=== PATIENT | female | born 1995 | race Caucasian/White ===

== ENCOUNTER 2016-10-03 13:23 | Emergency (ER) | payer BC ==
[~2016-10-03] VITALS: Ht 162.6 cm; Wt 59.0 kg
[2016-10-03 13:27] VITALS: Ht 162.6 cm; Wt 59.0 kg
[2016-10-03] MEDS ORDERED: SODIUM CHLORIDE 0.9% 1000ML 1,000 ML IV STA (14:32)
[2016-10-03] MEDS ORDERED: ACETAMINOPHEN 325 MG TAB PO STA (14:32)
[2016-10-03 15:01] LABS: BASO % 0.1 %; BASO ABS # 0.01 K/uL (0-0.2); COMPLETE YES; EOS % 0.1 %; HEMATOCRIT 38.9 % (37-47); IG% 0.2 %; LYMPH % 9.5 %; MEAN CELL VOLUME 89.6 fL (80-100); MEAN CORPUSCULAR HEMOGLOBIN 30.9 pg (25-34); MEAN CORPUSCULAR HGB CONC 34.4 g/dl (32-36); MEAN PLATELET VOLUME 10.1 fL (7.4-10.4); MONO % 8.9 %; NEUT % 81.2 %; PLATELET COUNT 157 K/uL (130-400); RED BLOOD COUNT 4.34 M/uL (4.2-5.4); WHITE BLOOD COUNT 9.47 K/uL (4.8-10.8)
[2016-10-03 15:16] LABS: BUN/CREATININE RATIO 9.5 (10-20); CALCIUM 9.1 mg/dl (8.5-10.1); POTASSIUM 3.7 mmol/L (3.5-5.1)
[2016-10-03 15:30] LABS: MANUAL MICROSCOPIC REQUIRED? YES; URINE APPEARANCE CLEAR (CLEAR); URINE COLOR YELLOW; URINE NITRITE NEG (NEG); URINE SPECIFIC GRAVITY 1.025 (1.000-1.030); UROBILINOGEN NEG (NEG)
[2016-10-03 15:58] LABS: REVIEW REQ? NO
[2016-10-03 15:59] LABS: URINE BILIRUBIN NEG (NEG)
[2016-10-03 16:08] LABS: URINE BACTERIA NEG (NEG); URINE RBC 0-4 /hpf (0-4)
[2016-10-03] MEDS ORDERED: IBUPROFEN 200 MG TAB PO STA (16:10)
--- NOTE | 2016-10-03 16:36 | DIAGNOSTIC IMAGING REPORT ---
CHEST 2 VIEWS ROUTINE CLINICAL HISTORY: Fever, bodyaches vomiting, cough COMPARISON STUDY: No previous studies for comparison. FINDINGS: The cardiac and mediastinal contours are normal. There is no evidence of focal pulmonary consolidation. There is no evidence of failure. No pleural effusions are visualized.[ IMPRESSION: No active disease in the chest. Electronically signed by: Hussein Key M.D. 10/03/2016 4:34 PM Dictated Date/Time: 10/03/2016 4:34 PM
[2016-10-03 17:36] VITALS: BP 105/58; PULSE 96; TEMP 37.1; O2SAT 96
--- NOTE | 2016-10-03 17:53 | EMERGENCY ROOM VISIT NOTE ---
History Report prepared by Ingrid: Jennifer Gill Under the Supervision of: Dr. Venu Adams M.D. First contact with patient: 14:25 Chief Complaint: FLU LIKE SX Stated Complaint: HIGH FEVER, BODY ACHES, NECK PAIN, VOMITED History of Present Illness The patient is a 21 year old female who presents to the Emergency Room with complaints of constant flu-like symptoms beginning yesterday morning. The patient states that yesterday morning she woke up and vomited. She complains of a consistent fever of 102.7, body aches, slight cough, anterior neck pain, sore throat when she swallows, and some head pressure that was present yesterday and is now resolved. She denies any headache, rash, and chance of . The patient reports that she had mono last year that was confirmed with blood work. She notes that her roommates have coughs but no one around her has been severely ill. She states that she had her flu shot this year and she took Tylenol last 7 hours ago. Source of History: patient Onset: yesterday Position: other (global) Quality: other (flu-like) Timing: constant Associated Symptoms: + cough, + fevers, + neck pain, + sorethroat, No headache, No rash Review of Systems See HPI for pertinent positives & negatives. A total of 10 systems reviewed and were otherwise negative. Past Medical & Surgical Medical Problems: (1) No Known Active Medical Problems Family History No pertinent family history stated. Social History Smoking Status: Never Smoker Housing Status: lives with roommate Occupation Status: [employer] student Current/Historical Medications No Active Prescriptions or Reported Meds Allergies Coded Allergies: No Known Allergies (Unverified , 10/03/16) Physical Exam Vital Signs Date Time Temp Pulse Resp B/P Pulse Ox O2 Delivery O2 Flow Rate FiO2 10/03/16 17:36 37.1 96 16 105/58 96 Room Air 10/03/16 16:32 37.5 72 16 107/58 99 Room Air 10/03/16 14:55 37.3 81 16 116/62 100 Room Air 10/03/16 13:27 36.7 104 16 123/72 96 Room Air Physical Exam Constitutional: Vital signs reviewed. Eyes: Pupils are equal round reactive to light. Conjunctiva are noninjected. ENT: Pharynx is erythematous with no exudate. Mucous membranes are moist. Neck supple without meningeal signs. Tender anterior cervical lymphadenopathy bilaterally. Respiratory: Clear to auscultation bilaterally. Breath sounds are equal bilaterally. Cardiovascular: Regular rate and rhythm. No rubs or gallops. GI: Soft, nondistended and nontender. Bowel sounds are present. No organomegaly. Musculoskeletal: No peripheral edema. No CVA tenderness. Integumentary: No cyanosis. Neurological: The patient is awake and alert. No focal deficits. Psychiatric: Normal affect. Medical Decision & Procedures ER Provider Diagnostic Interpretation: X-ray results as stated below per interpretation by me and the radiologist: CHEST 2 VIEWS ROUTINE FINDINGS: The cardiac and mediastinal contours are normal. There is no evidence of focal pulmonary consolidation. There is no evidence of failure. No pleural effusions are visualized.[ IMPRESSION: No active disease in the chest. Electronically signed by: Hussein Key M.D. 10/03/2016 4:34 PM Dictated Date/Time: 10/03/2016 4:34 PM Laboratory Results 10/03/16 14:50 Red Blood Count 4.34, Mean Corpuscular Volume 89.6, Mean Corpuscular Hemoglobin 30.9, Mean Corpuscular Hemoglobin Concent 34.4, Mean Platelet Volume 10.1, Neutrophils (%) (Auto) 81.2, Lymphocytes (%) (Auto) 9.5, Monocytes (%) (Auto) 8.9, Eosinophils (%) (Auto) 0.1, Basophils (%) (Auto) 0.1, Neutrophils # (Auto) 7.69, Lymphocytes # (Auto) 0.90, Monocytes # (Auto) 0.84, Eosinophils # (Auto) 0.01, Basophils # (Auto) 0.01 10/03/16 14:50 Test 10/03/16 14:50 10/03/16 15:05 White Blood Count 9.47 K/uL (4.8-10.8) Red Blood Count 4.34 M/uL (4.2-5.4) Hemoglobin 13.4 g/dL (12.0-16.0) Hematocrit 38.9 % (37-47) Mean Corpuscular Volume 89.6 fL (80-100) Mean Corpuscular Hemoglobin 30.9 pg (25-34) Mean Corpuscular Hemoglobin Concent 34.4 g/dl (32-36) Platelet Count 157 K/uL (130-400) Mean Platelet Volume 10.1 fL (7.4-10.4) Neutrophils (%) (Auto) 81.2 % Lymphocytes (%) (Auto) 9.5 % Monocytes (%) (Auto) 8.9 % Eosinophils (%) (Auto) 0.1 % Basophils (%) (Auto) 0.1 % Neutrophils # (Auto) 7.69 K/uL (1.4-6.5) Lymphocytes # (Auto) 0.90 K/uL (1.2-3.4) Monocytes # (Auto) 0.84 K/uL (0.11-0.59) Eosinophils # (Auto) 0.01 K/uL (0-0.5) Basophils # (Auto) 0.01 K/uL (0-0.2) RDW Standard Deviation 42.2 fL (36.4-46.3) RDW Coefficient of Variation 12.8 % (11.5-14.5) Immature Granulocyte % (Auto) 0.2 % Immature Granulocyte # (Auto) 0.02 K/uL (0.00-0.02) Anion Gap 8.0 mmol/L (3-11) Est Creatinine Clear Calc Drug Dose 77.5 ml/min Estimated GFR () 93.9 Estimated GFR (Non- 81.0 BUN/Creatinine Ratio 9.5 (10-20) Calcium Level 9.1 mg/dl (8.5-10.1) Influenza Type A Antigen Neg for Influ A (NEG) Influenza Type B Antigen Neg for Influ B (NEG) Urine Color YELLOW Urine Appearance CLEAR (CLEAR) Urine pH 6.0 (4.5-7.5) Urine Specific [place] 1.025 (1.000-1.030) Urine Protein 1+ (NEG) Urine Glucose (UA) NEG (NEG) Urine Ketones 1+ (NEG) Urine Occult Blood NEG (NEG) Urine Nitrite NEG (NEG) Urine Bilirubin NEG (NEG) Urine Urobilinogen NEG (NEG) Urine Leukocyte Esterase NEG (NEG) Urine RBC 0-4 /hpf (0-4) Urine WBC 1-5 /hpf (0-5) Urine Epithelial Cells >30 /lpf (0-5) Urine Renal Cells 5-10 /lpf (FEW) Urine Bacteria NEG (NEG) Urine Test NEG (NEG) Laboratory results as reviewed by ma. Medications Administered Medications (Trade) Dose Ordered Sig/Frank Route Start Time Stop Time Status Last Admin Dose Admin Sodium Chloride (Nss 1000ml) 1,000 ml @ 999 mls/hr Q1H1M STAT IV 10/03/16 14:32 10/03/16 15:32 DC 10/03/16 15:05 999 MLS/HR Acetaminophen (Tylenol Tab) 650 mg NOW STAT PO 10/03/16 14:32 10/03/16 14:35 DC 10/03/16 15:05 650 MG Ibuprofen (Advil Tab) 400 mg NOW STAT PO 10/03/16 16:10 10/03/16 16:11 DC 10/03/16 16:32 400 MG ED Course 1425: The patient was evaluated in room A9. A complete history and physical exam was performed. 1432: Tylenol Tab 650mg PO, Sodium Chloride 1000 ml @ 999 mls/hr IV. 1610: I reevaluated the patient and talked to her about her test results. She is feeling a little better. 1610: Advil Tab 400mg PO. 1732: I reevaluated the patient and discussed her test results. She is well appearing. 1741: Upon reevaluation, the patient appeared to have improvement of her symptoms. I discussed tonight's findings with the patient. She verbalized agreement of the treatment plan. The patient was discharged home. Medical Decision This is a 21-year-old female who presents with flulike symptoms. Differential diagnosis includes influenza, viral syndrome, pneumonia, strep pharyngitis, bronchitis. I did perform a limited focused review of portions of the patient' s old chart on the electronic medical record. The patient has had no prior visits to this hospital. I did evaluate the patient as noted above. The patient is presenting with flulike symptoms since yesterday. She did complain of neck pain but does have some anterior cervical lymphadenopathy and no meningeal signs on exam. She does complain of a sore throat when she swallows. A rapid strep test was performed and negative. A throat culture is pending. IV access was established. I did treat the patient with normal saline IV. She was also given Tylenol and Motrin. I did order and personally review the patient's chest x-ray as described above. There is no evidence of pneumonia. Rapid flu testing was negative. I did order and review the patient's blood work as noted in the electronic medical record. Her white blood cell count is not elevated. Urinalysis does not show signs of a urinary tract infection. I did reassess the patient. She is feeling better. I did discuss the test results with her. I did recommend close follow up with her doctor or [facility]. She was discharged in good condition. Impression Primary Impression: Acute febrile illness Additional Impression: Pharyngitis Scribe Attestation The scribe's documentation has been prepared under my direct and personally reviewed by me in its entirety. I confirm that the note above accurately reflects all work, treatment, procedures, and medical decision making performed by me. Departure Information Dispostion Home / Self-Care Prescriptions No Active Prescriptions or Reported Meds Referrals [facility] (PCP) Forms HOME CARE DOCUMENTATION FORM, IMPORTANT VISIT INFORMATION Patient Instructions ED Fever Unconf Cause, My [facility] Additional Instructions You have been examined and treated today on an emergency basis only. This is not a substitute for, or an effort to provide, complete comprehensive medical care. It is impossible to recognize and treat all injuries or illnesses in a single emergency department visit. It is therefore important that you follow up closely with your physician. Call as soon as possible for an appointment. Return for worsening symptoms or if you develop headache, rash, difficulty breathing or any other concerning symptoms. Problem Qualifiers Additional Impression: Pharyngitis Pharyngitis/tonsillitis etiology: unspecified etiology Qualified Codes: J02.9 - Acute pharyngitis, unspecified
--- NOTE | 2016-10-05 12:29 | Pharmacy Progress Note ---
ED Pharmacist Culture FollowUp Date of Service: Oct 05, 2016. Patient's backup Grp A Strep culture resulted today. The GAS rapid screen was negative, however the backup culture is growing Grp C beta-hemolytic strep. This organism can cause pharyngitis, however can also reflect colonization. If the patient is still symptomatic she may require treatment. Amoxil 500mg PO BID x 10 days is usually recommended. I contacted the patient via phone today and she stated she is feeling better. She states she has been afebrile x 24 hours now and that her sore throat is still present but much improved. Overall she feels she is getting better. I advised patient that this species of Strep is not the same as "strep throat" which is caused by Grp A Strep. Treatment for this organism is controversial, but is reasonable if she was not improving. I advised her that if her symptoms do not continue to improve over the next 24-48 hrs abx may be warranted and she should not hesitate to contact the ER. Case was reviewed with Dr Lucero.
== END 2016-10-03 17:48 | disposition home or self-care (01) ==
LOC: C.EDB 13:26 → C.EDA 17:48
DX: R50.9 Fever, unspecified (principal); J02.9 Acute pharyngitis, unspecified